=== PATIENT | male | born 1940 | race African-American/Black ===

== ENCOUNTER 2019-06-09 11:15 | Inpatient (IN) | payer MEDICARE, MEDICAID ==
[~2019-06-09] VITALS: Ht 167.6 cm; Wt 81.8 kg
[~2019-06-09 11:15] MED LIST: ATOR10TA; CETI10CA8; GINKO BILOBA; MULT-16; VALS320T2
[2019-06-09] MEDS ORDERED: SODIUM CHLORIDE 0.9% 1,000 ML IV ONE (11:40)
[2019-06-09 12:29] LABS: BASOPHILS % 0.7 % (0.0-2.0); EOSINOPHILS % 2.8 % (0.0-5.0); HEMATOCRIT. 25.7 % (42.0-52.0); HEMOGLOBIN. 8.2 g/dL (14.0-18.0); LYMPHOCYTES % 23.9 % (20.0-50.0); MEAN CORPUSCULAR HEMOGLOBIN 25.9 pg (28.0-32.0); MEAN CORPUSCULAR VOLUME 80.9 fL (80.0-94.0); MEAN PLATELET VOLUME 7.6 fl (7.4-10.4); MONOCYTES % 4.1 % (2.0-8.0); NEUTROPHILS % 68.5 % (40.0-76.0); PLATELET 110 x1000/uL (130-400); RED BLOOD CELL COUNT 3.18 mill/uL (4.7-6.1); RED CELL DISTRIBUTION WIDTH 15.5 % (11.6-14.6)
[2019-06-09 12:32] LABS: CLARITY URINE CLEAR (CLEAR); COLOR URINE YELLOW (YELLOW); KETONES URINE NEGATIVE (NEGATIVE); LEUKOCYTE ESTERASE URINE 1+ (NEGATIVE); NITRITE URINE NEGATIVE (NEGATIVE); OCCULT BLOOD URINE NEGATIVE (NEGATIVE); PROTEIN URINE NEGATIVE (NEGATIVE); SPECIFIC GRAVITY URINE 1.024 (1.005-1.030)
[2019-06-09 12:34] LABS: CHLORIDE 104 mEq/L (98-107)
[2019-06-09] MEDS ORDERED: LEVOFLOXACIN 500MG PREMIX 100 ML IV SCH ×2 (16:15→16:45)
[2019-06-09] MEDS ORDERED: ACETAMINOPHEN 325MG TABLET PO PRN ×2 (16:45)
[2019-06-09] MEDS ORDERED: GUAIFENESIN 200MG/10ML SUGAR FREE UDC PO PRN (16:45)
[2019-06-09] MEDS ORDERED: CLONIDINE 0.1MG TABLET PO PRN (16:45)
[2019-06-09] MEDS ORDERED: MAGNESIUM/ALUMINUM HYDROXIDE/SIMETHICONE 30ML UDC PO PRN (16:45)
[2019-06-09] MEDS ORDERED: DIPHENHYDRAMINE 50MG/ML VIAL IV PRN (16:45)
[2019-06-09] MEDS ORDERED: ONDANSETRON HCL 4MG/2ML INJ IV PRN (16:45)
[2019-06-09] MEDS ORDERED: LORAZEPAM 2MG/ML CPJ IV PRN (16:45)
[2019-06-09] MEDS ORDERED: BISACODYL 10MG SUPP PR PRN (17:00)
[2019-06-09] MEDS ORDERED: MAGNESIUM HYDROXIDE 400MG/5ML 30ML UDC PO PRN (17:00)
[2019-06-09] MEDS ORDERED: CEFTRIAXONE 1 G PREMIX 50 ML IV ONE (17:00)
[2019-06-09 20:25] VITALS: BP 151/78
[2019-06-09 20:30] VITALS: BP 151/78
[2019-06-10] VITALS: BP 142/75
[2019-06-10] MEDS: LEVOFLOXACIN 500MG PREMIX 100 ML IV SCH ×2 (00:18→22:29)
[2019-06-10] MEDS: RISPERIDONE 1MG TABLET PO SCH ×2 (00:19→22:29)
[2019-06-10] MEDS: DOCUSATE SODIUM 100MG CAPSULE PO SCH ×3 (00:19→16:35)
[2019-06-10] MEDS: SODIUM CHLORIDE 0.9% INJ 3ML FLUSH IVF SCH ×4 (00:19→22:30)
[2019-06-10] MEDS: GABAPENTIN 100MG CAPSULE PO SCH ×2 (00:19→22:29)
[2019-06-10 04:00] VITALS: BP 153/71
[2019-06-10 08:00] VITALS: BP 137/71
[2019-06-10] MEDS: MULTIVITAMINS,THER W-MINERALS TABLET PO SCH (08:59)
[2019-06-10] MEDS: LOSARTAN POTASSIUM 50 MG TABLET PO SCH (08:59)
[2019-06-10 12:00] VITALS: BP 140/52
[2019-06-10 16:00] VITALS: BP 144/80
[2019-06-10 20:00] VITALS: BP 138/77
[2019-06-11] VITALS: BP 131/83
[2019-06-11 04:00] VITALS: BP 144/73
[2019-06-11] MEDS: SODIUM CHLORIDE 0.9% INJ 3ML FLUSH IVF SCH ×3 (06:46→21:57)
[2019-06-11 08:04] VITALS: BP 139/69
[2019-06-11] MEDS: LOSARTAN POTASSIUM 50 MG TABLET PO SCH (08:53)
[2019-06-11] MEDS: DOCUSATE SODIUM 100MG CAPSULE PO SCH ×2 (08:53→17:41)
[2019-06-11] MEDS: MULTIVITAMINS,THER W-MINERALS TABLET PO SCH (08:53)
[2019-06-11 12:03] VITALS: BP 127/72
[2019-06-11] MEDS ORDERED: VANCOMYCIN 1500MG in DEXTROSE 5% WATER 250ML IV NR (14:00)
[2019-06-11 16:04] VITALS: BP 106/57
[2019-06-11 20:00] VITALS: BP 128/61
[2019-06-11] MEDS: GABAPENTIN 100MG CAPSULE PO SCH (21:56)
[2019-06-11] MEDS: RISPERIDONE 1MG TABLET PO SCH (21:56)
[2019-06-11] MEDS: AMOXICILLIN 500 MG CAPSULE PO SCH (23:37)
[2019-06-11] MEDS ORDERED: LORAZEPAM 1MG TABLET PO PRN (23:45)
[2019-06-12] VITALS: BP 111/54
[2019-06-12] MEDS ORDERED: VANCOMYCIN HCL 750 MG in DEXT 5% WATER 250 ML IV SCH (02:00)
[2019-06-12 04:00] VITALS: BP 115/69
[2019-06-12] MEDS: SODIUM CHLORIDE 0.9% INJ 3ML FLUSH IVF SCH (05:55)
[2019-06-12] MEDS: AMOXICILLIN 500 MG CAPSULE PO SCH ×2 (05:55→13:25)
[2019-06-12 08:00] VITALS: BP 128/62
[2019-06-12] MEDS: DOCUSATE SODIUM 100MG CAPSULE PO SCH ×2 (08:33→16:39)
[2019-06-12] MEDS: MULTIVITAMINS,THER W-MINERALS TABLET PO SCH (08:33)
[2019-06-12] MEDS: LOSARTAN POTASSIUM 50 MG TABLET PO SCH (08:33)
[2019-06-12 12:00] VITALS: BP 117/63
[2019-06-12 12:55] VITALS: BP 106/67
[2019-06-12 16:00] VITALS: BP 127/51
== END 2019-06-12 18:29 | DRG 872 ==
LOC: ER 11:15 → 7EST 14:48 → EDBEDREQ 15:14 → EDBEDREQSVC 15:14 → ENRESERV 16:03 → CANRESERV 16:03 → EDBEDREQ 16:51 → ENRESERV 17:56 → 6EST 06-11 19:10
PROVIDERS: ADMIT Internal Medicine; ATTEND Internal Medicine
DX: A40.9 Streptococcal sepsis, unspecified (principal); N39.0 Urinary tract infection, site not specified; E44.1 Mild protein-calorie malnutrition; F20.9 Schizophrenia, unspecified; Z90.79 Acquired absence of other genital organ(s); M10.9 Gout, unspecified; I10 Essential (primary) hypertension; F03.90 Unspecified dementia, unspecified severity, without behavioral disturbance, psychotic disturbance, mood disturbance, and anxiety; E78.5 Hyperlipidemia, unspecified; I48.91 Unspecified atrial fibrillation; Z66 Do not resuscitate; Z20.828 Contact with and (suspected) exposure to other viral communicable diseases; E11.40 Type 2 diabetes mellitus with diabetic neuropathy, unspecified; M19.90 Unspecified osteoarthritis, unspecified site; Z87.440 Personal history of urinary (tract) infections; Z86.73 Personal history of transient ischemic attack (TIA), and cerebral infarction without residual deficits
CPT/HCPCS: 36415; 71045; 80053; 81003; 83605; 84145; 84484; 85025; 87077; 87186; 87635; 93005; 99291; J1956; J3370; J7030; J7060

== ENCOUNTER 2020-05-04 20:18 | Inpatient (IN) | payer MEDICARE, MEDICAID ==
[~2020-05-04] VITALS: Ht 172.7 cm; Wt 91.3 kg
[2020-05-05 02:48] LABS: CHLORIDE 124 mEq/L (98-107)
[2020-05-05] MEDS ORDERED: SODIUM CHLORIDE 0.9% 1,000 ML IV NR (04:45)
[2020-05-05 08:11] LABS: HEMATOCRIT 40.3 % (42.0-52.0); HEMOGLOBIN 12.6 g/dL (14.0-18.0); MEAN CORPUSCULAR HEMOGLOBIN 26.9 pg (28.0-32.0); MEAN CORPUSCULAR VOLUME 86.1 fL (80.0-94.0); PLATELET 167 x1000/uL (130-400); RED BLOOD CELL COUNT 4.68 mill/uL (4.7-6.1); RED CELL DISTRIBUTION WIDTH 16.4 % (11.6-14.6)
[2020-05-05] MEDS ORDERED: DOCU-138 MT (09:00)
[2020-05-05] MEDS ORDERED: LOSA50TA41 MT (09:00)
[2020-05-05] MEDS ORDERED: GABA-529 PO (09:02)
[2020-05-05] MEDS ORDERED: MAGN30OR PO (09:02)
[2020-05-05] MEDS ORDERED: CLON1PAT11 TD (09:02)
[2020-05-05] MEDS ORDERED: RISP2 MT (09:03)
[2020-05-05] MEDS ORDERED: MAGNESIUM/ALUMINUM HYDROXIDE/SIMETHICONE 30ML UDC PO PRN ×2 (09:45→17:15)
[2020-05-05] MEDS ORDERED: ONDANSETRON HCL 4MG/2ML INJ IV PRN ×2 (09:45→17:15)
[2020-05-05] MEDS ORDERED: ACETAMINOPHEN 650MG/20.3ML UDC PO PRN (09:45)
[2020-05-05] MEDS ORDERED: CLONIDINE 0.1MG TABLET PO PRN ×2 (09:45→17:15)
[2020-05-05 10:32] VITALS: BP 118/71
[2020-05-05] MEDS: DEXTROSE 5% WATER 1,000 ML IV SCH (11:30)
[2020-05-05 16:00] VITALS: BP 150/75
[2020-05-05] MEDS ORDERED: DIPHENHYDRAMINE 50MG/ML VIAL IV PRN (17:15)
[2020-05-05] MEDS ORDERED: ACETAMINOPHEN 325MG TABLET PO PRN ×2 (17:15)
[2020-05-05] MEDS ORDERED: DEXTROSE 50% WATER 50ML SYRINGE IV PRN (17:15)
[2020-05-05] MEDS ORDERED: ZOLPIDEM TARTRATE 5MG TABLET PO PRN (17:15)
[2020-05-05] MEDS: BLOOD SUGAR DIAGNOSTIC STRIP TEST SCH ×2 (17:42→21:00)
[2020-05-05] MEDS: ENOXAPARIN 40MG/0.4ML SYR SUBCUT SCH (17:55)
[2020-05-05] MEDS: INSULIN LISPRO 100 UNITS/ML SUBCUT SCH ×2 (17:55→23:00)
[2020-05-05 20:00] VITALS: BP 128/89
[2020-05-05] MEDS ORDERED: RISPERIDONE 1MG TABLET PO SCH (21:00)
[2020-05-05] MEDS: GABAPENTIN 100MG CAPSULE PO SCH (22:50)
[2020-05-06] VITALS: BP 138/79
[2020-05-06] MEDS: DEXTROSE 5% WATER 1,000 ML IV SCH ×3 (01:22→17:17)
[2020-05-06 04:00] VITALS: BP 107/60
[2020-05-06] MEDS: BLOOD SUGAR DIAGNOSTIC STRIP TEST SCH ×4 (05:53→21:00)
[2020-05-06] MEDS: INSULIN LISPRO 100 UNITS/ML SUBCUT SCH ×4 (06:01→21:00)
[2020-05-06 08:00] VITALS: BP 116/76
[2020-05-06] MEDS: DOCUSATE SODIUM 100MG CAPSULE PO SCH ×2 (08:08→16:23)
[2020-05-06] MEDS: LOSARTAN POTASSIUM 50 MG TABLET PO SCH (08:09)
[2020-05-06 12:00] VITALS: BP 110/76
[2020-05-06 12:28] LABS: BASOPHILS % 0.5 % (0.0-2.0); EOSINOPHILS % 3.3 % (0.0-5.0); HEMATOCRIT. 39.1 % (42.0-52.0); HEMOGLOBIN. 12.4 g/dL (14.0-18.0); LYMPHOCYTES % 20.3 % (20.0-50.0); MEAN CORPUSCULAR HEMOGLOBIN 26.9 pg (28.0-32.0); MEAN PLATELET VOLUME 9.4 fl (7.4-10.4); MONOCYTES % 6.7 % (2.0-8.0); NEUTROPHILS % 69.2 % (40.0-76.0); PLATELET 148 x1000/uL (130-400)
[2020-05-06 12:34] LABS: CHLORIDE 120 mEq/L (98-107)
[2020-05-06 12:41] LABS: PHOSPHORUS 2.4 mg/dL (2.5-4.9)
[2020-05-06 16:00] VITALS: BP 127/72
[2020-05-06] MEDS: RISPERIDONE 1MG TABLET PO SCH (17:16)
[2020-05-06] MEDS: ENOXAPARIN 40MG/0.4ML SYR SUBCUT SCH (17:16)
[2020-05-06 20:00] VITALS: BP 118/74
[2020-05-06] MEDS: GABAPENTIN 100MG CAPSULE PO SCH (21:00)
[2020-05-06] MEDS: INSULIN GLARGINE UD 100 UNITS/ML SYR SUBCUT SCH (22:00)
[2020-05-07 00:27] VITALS: BP 115/76
[2020-05-07 04:00] VITALS: BP 125/75
[2020-05-07] MEDS: BLOOD SUGAR DIAGNOSTIC STRIP TEST SCH ×4 (06:16→20:51)
[2020-05-07] MEDS: INSULIN LISPRO 100 UNITS/ML SUBCUT SCH ×4 (06:19→20:51)
[2020-05-07] MEDS: LOSARTAN POTASSIUM 50 MG TABLET PO SCH (09:00)
[2020-05-07] MEDS: DOCUSATE SODIUM 100MG CAPSULE PO SCH ×2 (10:05→17:41)
[2020-05-07] MEDS: RISPERIDONE 1MG TABLET PO SCH ×2 (10:05→17:41)
[2020-05-07 12:00] VITALS: BP 127/61
[2020-05-07 16:00] VITALS: BP 138/78
[2020-05-07] MEDS: ENOXAPARIN 40MG/0.4ML SYR SUBCUT SCH (17:41)
[2020-05-07 20:00] VITALS: BP 102/73
[2020-05-07] MEDS: INSULIN GLARGINE UD 100 UNITS/ML SYR SUBCUT SCH (21:26)
[2020-05-07] MEDS: GABAPENTIN 100MG CAPSULE PO SCH (21:26)
[2020-05-08] VITALS: BP 116/63
[2020-05-08 04:00] VITALS: BP 161/65
[2020-05-08] MEDS: BLOOD SUGAR DIAGNOSTIC STRIP TEST SCH ×4 (06:05→20:47)
[2020-05-08 08:00] VITALS: BP 126/73
[2020-05-08] MEDS: DOCUSATE SODIUM 100MG CAPSULE PO SCH ×2 (09:48→18:19)
[2020-05-08] MEDS: RISPERIDONE 1MG TABLET PO SCH ×2 (09:49→18:19)
[2020-05-08] MEDS: LOSARTAN POTASSIUM 50 MG TABLET PO SCH (09:49)
[2020-05-08] MEDS: INSULIN LISPRO 100 UNITS/ML SUBCUT SCH ×4 (09:49→20:47)
[2020-05-08] MEDS ORDERED: LORAZEPAM 2MG/ML CPJ IM NR (11:45)
[2020-05-08 12:00] VITALS: BP 112/68
[2020-05-08] MEDS: ENOXAPARIN 40MG/0.4ML SYR SUBCUT SCH (18:19)
[2020-05-08 18:36] LABS: CHLORIDE 119 mEq/L (98-107)
[2020-05-08 18:42] LABS: PHOSPHORUS 2.6 mg/dL (2.5-4.9)
[2020-05-08 20:00] VITALS: BP 140/99
[2020-05-08] MEDS: GABAPENTIN 100MG CAPSULE PO SCH (20:39)
[2020-05-08] MEDS: INSULIN GLARGINE UD 100 UNITS/ML SYR SUBCUT SCH (20:48)
[2020-05-09] VITALS: BP 136/89
[2020-05-09 04:00] VITALS: BP 134/78
[2020-05-09] MEDS: BLOOD SUGAR DIAGNOSTIC STRIP TEST SCH ×4 (05:41→21:19)
[2020-05-09] MEDS: INSULIN LISPRO 100 UNITS/ML SUBCUT SCH ×4 (06:35→21:18)
[2020-05-09 08:00] VITALS: BP 101/50
[2020-05-09] MEDS: LOSARTAN POTASSIUM 50 MG TABLET PO SCH (09:00)
[2020-05-09] MEDS: RISPERIDONE 1MG TABLET PO SCH ×2 (10:17→17:36)
[2020-05-09] MEDS: DOCUSATE SODIUM 100MG CAPSULE PO SCH ×2 (10:17→17:36)
[2020-05-09] MEDS ORDERED: LIDOCAINE HCL 1% 20ML VIAL (Pyxis) INJ ONE (11:06)
[2020-05-09 12:00] VITALS: BP 74/39
[2020-05-09 16:00] VITALS: BP 106/65
[2020-05-09] MEDS: DEXTROSE 5% WATER 1,000 ML IV SCH ×2 (17:37→17:41)
[2020-05-09] MEDS: ENOXAPARIN 40MG/0.4ML SYR SUBCUT SCH (17:42)
[2020-05-09 20:00] VITALS: BP 105/47
[2020-05-09] MEDS: GABAPENTIN 100MG CAPSULE PO SCH (21:19)
[2020-05-09] MEDS: INSULIN GLARGINE UD 100 UNITS/ML SYR SUBCUT SCH (21:19)
[2020-05-10] VITALS (9 sets, daily range): BP systolic 78–108; BP diastolic 42–62
[2020-05-10] MEDS: DEXTROSE 5% WATER 1,000 ML IV SCH ×3 (00:13→12:28)
[2020-05-10] MEDS: BLOOD SUGAR DIAGNOSTIC STRIP TEST SCH ×4 (06:27→21:12)
[2020-05-10] MEDS: INSULIN LISPRO 100 UNITS/ML SUBCUT SCH ×4 (06:33→21:13)
[2020-05-10 06:51] LABS: BASOPHILS % 0.5 % (0.0-2.0); EOSINOPHILS % 3.4 % (0.0-5.0); HEMATOCRIT. 32.8 % (42.0-52.0); HEMOGLOBIN. 10.1 g/dL (14.0-18.0); LYMPHOCYTES % 27.8 % (20.0-50.0); MEAN CORPUSCULAR HEMOGLOBIN 26.4 pg (28.0-32.0); MEAN CORPUSCULAR VOLUME 85.4 fL (80.0-94.0); MEAN PLATELET VOLUME 9.3 fl (7.4-10.4); MONOCYTES % 6.8 % (2.0-8.0); NEUTROPHILS % 61.5 % (40.0-76.0); PLATELET 157 x1000/uL (130-400); RED BLOOD CELL COUNT 3.84 mill/uL (4.7-6.1); RED CELL DISTRIBUTION WIDTH 16.1 % (11.6-14.6)
[2020-05-10 07:01] LABS: CHLORIDE 109 mEq/L (98-107)
[2020-05-10 07:09] LABS: PHOSPHORUS 2.1 mg/dL (2.5-4.9)
[2020-05-10] MEDS: LOSARTAN POTASSIUM 50 MG TABLET PO SCH (09:00)
[2020-05-10] MEDS: RISPERIDONE 1MG TABLET PO SCH ×3 (09:33→18:11)
[2020-05-10] MEDS: DOCUSATE SODIUM 100MG CAPSULE PO SCH ×3 (09:33→18:11)
[2020-05-10] MEDS ORDERED: POTASSIUM CHLORIDE 20MEQ TABLET SR PO NR (13:15)
[2020-05-10] MEDS ORDERED: MAGNESIUM 1 G PREMIX 100 ML IV NR (14:30)
[2020-05-10] MEDS ORDERED: POTASSIUM PHOS,M-BASIC-D-BASIC 15 MMOL in DEXT 5% WATER 245 ML IV NR (14:30)
[2020-05-10] MEDS: ENOXAPARIN 30MG/0.3ML SYR SUBCUT SCH (18:14)
[2020-05-10] MEDS: GABAPENTIN 100MG CAPSULE PO SCH (21:00)
[2020-05-10] MEDS: INSULIN GLARGINE UD 100 UNITS/ML SYR SUBCUT SCH (21:13)
[2020-05-11] VITALS: BP 101/52
[2020-05-11] MEDS: ENOXAPARIN 30MG/0.3ML SYR SUBCUT SCH ×2 (02:06→19:06)
[2020-05-11 04:00] VITALS: BP 95/62
[2020-05-11] MEDS: BLOOD SUGAR DIAGNOSTIC STRIP TEST SCH ×4 (06:02→21:00)
[2020-05-11] MEDS: INSULIN LISPRO 100 UNITS/ML SUBCUT SCH ×4 (06:03→21:00)
[2020-05-11 08:00] VITALS: BP 120/60
[2020-05-11] MEDS ORDERED: LIDOCAINE HCL 1% 20ML VIAL (Pyxis) INJ ONE (08:48)
[2020-05-11] MEDS: DOCUSATE SODIUM 100MG CAPSULE PO SCH ×2 (09:00→17:00)
[2020-05-11] MEDS: LOSARTAN POTASSIUM 50 MG TABLET PO SCH (10:38)
[2020-05-11] MEDS: PANTOPRAZOLE SODIUM 40 MG/VIAL IV SCH (10:38)
[2020-05-11] MEDS: RISPERIDONE 1MG TABLET PO SCH ×2 (10:38→17:00)
[2020-05-11 11:47] LABS: HEMATOCRIT 31.5 % (42.0-52.0); MEAN CORPUSCULAR HEMOGLOBIN 26.9 pg (28.0-32.0); MEAN CORPUSCULAR VOLUME 84.7 fL (80.0-94.0); PLATELET 184 x1000/uL (130-400); RED BLOOD CELL COUNT 3.71 mill/uL (4.7-6.1); RED CELL DISTRIBUTION WIDTH 15.4 % (11.6-14.6)
[2020-05-11 12:00] VITALS: BP 141/69
[2020-05-11 16:00] VITALS: BP 139/74
[2020-05-11] MEDS: SUCRALFATE 1 G/10 ML UDC PO SCH ×2 (17:10→21:00)
[2020-05-11] MEDS: DEXT 5%/0.45% NACL KCL 10MEQ/L 1,000 ML IV SCH (17:57)
[2020-05-11 20:00] VITALS: BP 101/51
[2020-05-11] MEDS ORDERED: LORAZEPAM 2MG/ML CPJ IV PRN (20:00)
[2020-05-11 20:21] LABS: TOTAL IRON BINDING CAPACITY 143 ug/dL (250-450)
[2020-05-11 20:48] LABS: FERRITIN 588 ng/mL (22-322)
[2020-05-11] MEDS: GABAPENTIN 100MG CAPSULE PO SCH (21:00)
[2020-05-11 21:01] LABS: VITAMIN B12 SERUM >2000 pg/mL pg/mL (211-911)
[2020-05-11] MEDS: INSULIN GLARGINE UD 100 UNITS/ML SYR SUBCUT SCH (22:00)
[2020-05-12] VITALS: BP 99/62
[2020-05-12] MEDS: DEXT 5%/0.45% NACL KCL 10MEQ/L 1,000 ML IV SCH ×2 (02:53→10:05)
[2020-05-12 04:00] VITALS: BP 119/73
[2020-05-12 06:18] LABS: BASOPHILS % 0.2 % (0.0-2.0); EOSINOPHILS % 0.9 % (0.0-5.0); HEMATOCRIT. 32.3 % (42.0-52.0); HEMOGLOBIN. 10.4 g/dL (14.0-18.0); LYMPHOCYTES % 10.4 % (20.0-50.0); MEAN CORPUSCULAR HEMOGLOBIN 27.5 pg (28.0-32.0); MEAN CORPUSCULAR VOLUME 84.9 fL (80.0-94.0); NEUTROPHILS % 82.5 % (40.0-76.0); PLATELET 157 x1000/uL (130-400); RED BLOOD CELL COUNT 3.81 mill/uL (4.7-6.1); RED CELL DISTRIBUTION WIDTH 15.6 % (11.6-14.6)
[2020-05-12] MEDS: SUCRALFATE 1 G/10 ML UDC PO SCH ×3 (07:07→17:38)
[2020-05-12 07:11] LABS: CHLORIDE 108 mEq/L (98-107)
[2020-05-12] MEDS: ENOXAPARIN 30MG/0.3ML SYR SUBCUT SCH ×2 (07:11→17:38)
[2020-05-12] MEDS: BLOOD SUGAR DIAGNOSTIC STRIP TEST SCH ×3 (07:11→17:37)
[2020-05-12 07:16] LABS: PHOSPHORUS 2.3 mg/dL (2.5-4.9)
[2020-05-12] MEDS: INSULIN LISPRO 100 UNITS/ML SUBCUT SCH ×3 (07:40→17:37)
[2020-05-12 08:00] VITALS: BP_SYST 114; BP_SYST 182; BP_DIAS 50; BP_DIAS 56
[2020-05-12] MEDS: LOSARTAN POTASSIUM 50 MG TABLET PO SCH (10:04)
[2020-05-12] MEDS: RISPERIDONE 1MG TABLET PO SCH ×2 (10:04→17:38)
[2020-05-12] MEDS: PANTOPRAZOLE SODIUM 40 MG/VIAL IV SCH (10:05)
[2020-05-12 12:00] VITALS: BP_SYST 120; BP_SYST 153; BP_DIAS 51; BP_DIAS 63
[2020-05-12] MEDS ORDERED: DOCUSATE SODIUM SUGAR FREE 100MG/10ML UDC NG SCH (12:15)
[2020-05-12 16:00] VITALS: BP 128/59
== END 2020-05-12 19:24 | DRG 70 ==
LOC: ER 20:18 → 8WST 05-05 04:33 → ENRESERV 05-05 07:13
PROVIDERS: ADMIT Internal Medicine; ATTEND Internal Medicine
PROC: 02HV33Z Insertion of Infusion Device into Superior Vena Cava, Percutaneous Approach (ICD-10-PCS; principal; 2020-05-11)
PROC: B548ZZA Ultrasonography of Superior Vena Cava, Guidance (ICD-10-PCS; 2020-05-11)
PROC: B518ZZA Fluoroscopy of Superior Vena Cava, Guidance (ICD-10-PCS; 2020-05-11)
DX: G93.41 Metabolic encephalopathy (principal); L89.313 Pressure ulcer of right buttock, stage 3; N17.9 Acute kidney failure, unspecified; E87.0 Hyperosmolality and hypernatremia; E46 Unspecified protein-calorie malnutrition; K92.2 Gastrointestinal hemorrhage, unspecified; E86.0 Dehydration; F03.90 Unspecified dementia, unspecified severity, without behavioral disturbance, psychotic disturbance, mood disturbance, and anxiety; M19.90 Unspecified osteoarthritis, unspecified site; I48.91 Unspecified atrial fibrillation; H54.7 Unspecified visual loss; I10 Essential (primary) hypertension; D50.9 Iron deficiency anemia, unspecified; E11.40 Type 2 diabetes mellitus with diabetic neuropathy, unspecified; F20.9 Schizophrenia, unspecified; E78.5 Hyperlipidemia, unspecified; Z66 Do not resuscitate; E11.65 Type 2 diabetes mellitus with hyperglycemia; Z20.822 Contact with and (suspected) exposure to COVID-19; M10.9 Gout, unspecified; E83.42 Hypomagnesemia; E83.39 Other disorders of phosphorus metabolism; Z87.440 Personal history of urinary (tract) infections; Z86.73 Personal history of transient ischemic attack (TIA), and cerebral infarction without residual deficits; Z90.79 Acquired absence of other genital organ(s); Z68.30 Body mass index [BMI] 30.0-30.9, adult
CPT/HCPCS: 36415; 36573; 72131; 74174; 80048; 80053; 82040; 82607; 82728; 82746; 82962; 83036; 83540; 83550; 83735; 84100; 84134; 84443; 85025; 85027; 87426; 93005; 99291; A6261; C1725; C1769; C1893; C9113; J1200; J1650; J1815; J2060; J3475; J3490; J7060; J7070

== ENCOUNTER 2020-05-12 21:37 | Emergency (ER) | payer MEDICARE, MEDICAID ==
[~2020-05-12] VITALS: Ht 172.7 cm; Wt 95.0 kg
[~2020-05-12 21:37] MED LIST changes: +CLON1PAT11 TD; +DOCU-138 MT; +GABA-529 PO; +LOSA50TA41 MT; +MAGN30OR PO; +RISP2 MT
[2020-05-12 23:56] LABS: BASOPHILS % 0.4 % (0.0-2.0); EOSINOPHILS % 1.7 % (0.0-5.0); HEMATOCRIT. 30.1 % (42.0-52.0); HEMOGLOBIN. 9.6 g/dL (14.0-18.0); LYMPHOCYTES % 13.4 % (20.0-50.0); MEAN CORPUSCULAR HEMOGLOBIN 27.3 pg (28.0-32.0); MEAN CORPUSCULAR VOLUME 85.9 fL (80.0-94.0); MEAN PLATELET VOLUME 8.6 fl (7.4-10.4); MONOCYTES % 6.2 % (2.0-8.0); NEUTROPHILS % 78.3 % (40.0-76.0); PLATELET 177 x1000/uL (130-400); RED CELL DISTRIBUTION WIDTH 16.4 % (11.6-14.6)
[2020-05-13 00:03] LABS: CHLORIDE 110 mEq/L (98-107)
[2020-05-13 04:36] VITALS: BP 125/80
== END 2020-05-13 04:40 | disposition home or self-care (01) ==
LOC: ER 21:37
DX: D64.9 Anemia, unspecified (principal); E86.0 Dehydration; R11.2 Nausea with vomiting, unspecified; F03.90 Unspecified dementia, unspecified severity, without behavioral disturbance, psychotic disturbance, mood disturbance, and anxiety; I10 Essential (primary) hypertension; Z79.899 Other long term (current) drug therapy
CPT/HCPCS: 36415; 71045; 80048; 80076; 83605; 83880; 84145; 84484; 85025; 85379; 93005; 99285